=== PATIENT | female | born 1950 | race Caucasian/White ===

== ENCOUNTER → 2016-11-28 | Outpatient (CLI) | payer BC ==
--- NOTE | 2016-11-29 15:16 | MAMMOGRAPHY REPORT ---
BILATERAL DIGITAL SCREENING MAMMOGRAM TOMOSYNTHESIS WITH CAD: 11/28/2016 CLINICAL HISTORY: Routine screening examination. TECHNIQUE: Breast tomosynthesis in addition to standard 2D mammography was performed. Current study was also evaluated with a Computer Aided Detection (CAD) system. COMPARISON: Comparison is made to exams dated: 11/26/2015 mammogram - [facility], 10/29/2014 mammogram, 10/23/2013 mammogram, 10/22/2012 mammogram, and 10/20/2011 mammogram - [facility] [place]. BREAST COMPOSITION: The tissue of both breasts is heterogeneously dense, which may obscure small mas ses. FINDINGS: The parenchymal pattern is similar to prior mammograms. No developing mass, architectural distortion or cluster of suspicious microcalcifications is seen in either breast. IMPRESSION: ACR BI-RADS CATEGORY 2: BENIGN There is no mammographic evidence of malignancy. A 1 year screening mammogram is recommended. The pa tient will receive written notification of the results. Approximately 10% of breast cancers are not detected with mammography. A negative mammographic report should not delay biopsy if a clinically suggestive mass is present. Bernice Fernández M.D. ay/:11/28/2016 15:36:09 Integration Technician: Patricia REYES(Haleigh)(M), [facility] letter sent: Normal 1/2 BI-RADS Code: ACR BI-RADS Category 2: Benign
== END | disposition home or self-care (01) ==
LOC: C.MAMM 13:59
PROVIDERS: ATTEND Family Medicine
DX: Z12.31 Encounter for screening mammogram for malignant neoplasm of breast (principal)

== ENCOUNTER → 2016-12-05 | Outpatient (CLI) | payer BC ==
--- NOTE | 2016-12-05 11:07 | DIAGNOSTIC IMAGING REPORT ---
SOFT TISS HEAD/NECK-THYROID CLINICAL HISTORY: E04.9 [id number] multinodular thyroid goiter COMPARISON STUDY: 12/28/2015 FINDINGS: The right lobe of thyroid measures 49 x 21 x 16 mm. There are multiple right-sided thyroid nodules. The dominant nodule is a circumscribed, slightly hypoechoic, wider than tall, solid 20 x 9 x 13 mm. This remains unchanged the preceding study. The left lobe measures 39 x 18 x 15 mm. Multiple left lobe thyroid nodules are visualized. The dominant left lobe nodule is a circumscribed wider than tall slightly hypoechoic nodule measuring 17 x 12 x 9 mm. This nodule is also essentially unchanged in size when compared the preceding study. IMPRESSION: Multinodular thyroid goiter, very similar to the preceding study. Electronically signed by: Chandler Goel M.D. 12/05/2016 11:06 AM Dictated Date/Time: 12/05/2016 11:03 AM
== END | disposition home or self-care (01) ==
LOC: C.ULTR 10:17
PROVIDERS: ATTEND Internal Medicine Endocrinology, Diabetes & Metabolism
DX: E04.2 Nontoxic multinodular goiter (principal)

== ENCOUNTER 2017-01-15 01:49 | Emergency (ER) | payer BC, OTHER ==
[~2017-01-15] VITALS: Ht 162.6 cm; Wt 59.8 kg
[2017-01-15 01:52] VITALS: TEMP 36.4; Ht 162.6 cm; Wt 59.8 kg
[2017-01-15] MEDS ORDERED: SODIUM CHLORIDE 0.9% 500ML 500 ML IV STA (02:07)
--- NOTE | 2017-01-15 02:14 | EMERGENCY ROOM VISIT NOTE ---
History Report prepared by Kristi: Omid Davis Under the Supervision of: Dr. Leo Ibrahim M.D. First contact with patient: 01:57 Chief Complaint: SYNCOPE Stated Complaint: PASSED OUT,INITIAL SHORT TERM MEMORY LOSS History of Present Illness The patient is a 67 year old female who presents to the Emergency Room with complaints of a resolved syncopal episode that occurred at 0100. The patient is accompanied by her who states that he heard a thump in the other room, which caused him to check his bedroom. He reports that he found his after she fell, but denies that she was unconscious when he found her. The patient states that she remembers being dizzy and seeing "squiggly lines". She states that she does not remember falling and becoming unconscious, but knows she fell. Her states that the patient was confused following the fall and had short term memory loss. The patient states that she has been coming back to normal and feels fine now. She admits that she had a drink last night but denies any drug use. She reports that she has been taking hydrochlorothiazide 25 mg for her history of hypertension but reports she was dropped to 12.5 mg because she was becoming dehydrated. The patient states that her blood pressure has been going up recently, which has been causing her to take two a day. She states that her mother has a history of heart problems, but she denies a personal history of heart problems. The patient states that she had a stress test a couple of years ago, but denies any problems form the test. She denies a headache, diaphoresis, a pale appearance, abdominal pain, and legs swelling. Source of History: patient Onset: 0 Position: other (global) Quality: other (global) Timing: resolved Associated Symptoms: No headache, No diaphoresis, No abdominal pain Review of Systems See HPI for pertinent positives & negatives. A total of 10 systems reviewed and were otherwise negative. Past Medical & Surgical Medical Problems: (1) Hypertension Family History FHx: heart disease Social History Smoking Status: Never Smoker Smokeless Tobacco Use: No Alcohol Use: occasionally Drug Use: none Marital Status: Housing Status: lives with significant other Occupation Status: employed Current/Historical Medications Scheduled Ascorbic Acid (Vitamin C), 1,000 MG PO DAILY Ferrous Sulfate (Iron), 28 MG PO DAILY Hydrochlorothiazide (Hctz), 12.5 MG PO DIRECTED Magnesium Oxide (Mag-Ox), 400 MG PO DAILY Multivitamin (Multivitamin), 1 TAB PO DAILY Potassium Ext Rel (Klor-Con), 20 MEQ PO DAILY Allergies Coded Allergies: No Known Allergies (Unverified , 01/15/17) Physical Exam Vital Signs Date Time Temp Pulse Resp B/P (MAP) Pulse Ox O2 Delivery O2 Flow Rate FiO2 01/15/17 05:25 71 18 131/80 98 01/15/17 04:35 72 20 100 01/15/17 04:30 122/82 01/15/17 04:24 69 21 98 01/15/17 04:09 67 20 99 01/15/17 04:00 132/81 01/15/17 03:54 65 17 100 01/15/17 03:39 65 99 01/15/17 03:34 126/82 01/15/17 03:30 126/82 01/15/17 03:24 66 21 100 01/15/17 03:09 75 23 100 01/15/17 03:04 68 13 98 01/15/17 03:00 124/78 01/15/17 02:49 60 13 97 01/15/17 02:43 144/84 01/15/17 02:19 65 17 100 Room Air 01/15/17 02:09 147/95 01/15/17 02:08 164/99 01/15/17 02:07 66 153/91 74 164/99 75 147/95 01/15/17 02:07 153/91 01/15/17 01:52 36.4 65 20 160/92 100 Room Air Physical Exam GENERAL: Patient is well appearing and in no acute distress. HEENT: No acute trauma, normocephalic atraumatic, mucous membranes moist, no nasal congestion, no scleral icterus. NECK: No stridor, no adenopathy, no meningismus, trachea is midline. LUNGS: No dyspnea. Clear to auscultation and equal bilaterally. No wheeze, no rhonchi. HEART: Regular rate and rhythm. No murmurs, rubs, gallops appreciated. ABDOMEN: Soft, nontender, bowel sounds positive, no masses appreciated, no peritonitis. BACK: No midline tenderness, no CVA tenderness EXTREMITIES: Normal motion all extremities, no cyanosis, no edema. NEUROLOGIC: Alert and oriented, no acute motor or sensory deficits, no focal weakness, cranial nerves grossly intact. SKIN: No rash, no jaundice, no diaphoresis. Medical Decision & Procedures ER Provider Diagnostic Interpretation: Radiology results and stated below per my review and radiologist interpretation: CT HEAD: No acute intracranial abnormality identified. Prominent cerebral volume loss, especially along the frontal lobes. Radiologist: Yomi Grady M.D. Laboratory Results 01/15/17 02:26 Red Blood Count 4.08, Mean Corpuscular Volume 90.0, Mean Corpuscular Hemoglobin 30.9, Mean Corpuscular Hemoglobin Concent 34.3, Mean Platelet Volume 10.5, Neutrophils (%) (Auto) 62.0, Lymphocytes (%) (Auto) 28.9, Monocytes (%) (Auto) 6.7, Eosinophils (%) (Auto) 1.8, Basophils (%) (Auto) 0.4, Neutrophils # (Auto) 3.55, Lymphocytes # (Auto) 1.65, Monocytes # (Auto) 0.38, Eosinophils # (Auto) 0.10, Basophils # (Auto) 0.02 01/15/17 02:26 Test 01/15/17 02:26 01/15/17 04:39 White Blood Count 5.71 K/uL (4.8-10.8) Red Blood Count 4.08 M/uL (4.2-5.4) Hemoglobin 12.6 g/dL (12.0-16.0) Hematocrit 36.7 % (37-47) Mean Corpuscular Volume 90.0 fL (80-100) Mean Corpuscular Hemoglobin 30.9 pg (25-34) Mean Corpuscular Hemoglobin Concent 34.3 g/dl (32-36) Platelet Count 182 K/uL (130-400) Mean Platelet Volume 10.5 fL (7.4-10.4) Neutrophils (%) (Auto) 62.0 % Lymphocytes (%) (Auto) 28.9 % Monocytes (%) (Auto) 6.7 % Eosinophils (%) (Auto) 1.8 % Basophils (%) (Auto) 0.4 % Neutrophils # (Auto) 3.55 K/uL (1.4-6.5) Lymphocytes # (Auto) 1.65 K/uL (1.2-3.4) Monocytes # (Auto) 0.38 K/uL (0.11-0.59) Eosinophils # (Auto) 0.10 K/uL (0-0.5) Basophils # (Auto) 0.02 K/uL (0-0.2) RDW Standard Deviation 41.0 fL (36.4-46.3) RDW Coefficient of Variation 12.6 % (11.5-14.5) Immature Granulocyte % (Auto) 0.2 % Immature Granulocyte # (Auto) 0.01 K/uL (0.00-0.02) Anion Gap 4.0 mmol/L (3-11) Est Creatinine Clear Calc Drug Dose 54.5 ml/min Estimated GFR () 78.8 Estimated GFR (Non- 68.0 BUN/Creatinine Ratio 24.7 (10-20) Calcium Level 8.3 mg/dl (8.5-10.1) Troponin I < 0.015 ng/ml (0-0.045) Bedside Troponin I < 0.030 ng/ml (0-0.045) Laboratory results as reviewed by me. Medications Administered Medications (Trade) Dose Ordered Sig/Cecile Route Start Time Stop Time Status Last Admin Dose Admin Sodium Chloride 500 ml @ 999 mls/hr Q31M STAT IV 01/15/17 02:07 01/15/17 02:37 DC 01/15/17 02:19 999 MLS/HR Potassium Chloride (Klor-Con M10) 40 meq NOW STAT PO 01/15/17 03:02 01/15/17 03:07 DC 01/15/17 03:12 40 MEQ ECG Indication: syncope Rate (beats per minute): 66 Rhythm: normal sinus Findings: no acute ischemic change, no ectopy ED Course 0200: The patient was evaluated in room B04B. A complete history and physical exam was performed. 0207: Ordered Sodium Chloride 500 ml @ 999 mls/hr IV. 0302: Ordered Potassium Chloride 40 meq PO. 0315: I reevaluated the patient and she is feeling fine. 0430: Reevaluated the patient. Discussed results and discharge instructions: She verbalized understanding and agreement. The patient is ready for discharge. Medical Decision Differential: Vaso-vagal, Intracerebral Event, Neurologic, Infectious, Volume Deficiency, Hypoglycemia, Electrolyte Abnormality, Cardiac Source, Toxicologic, amongst other pathologies entertained. 67 yr old female arrives following brief syncopal event at home. Occurred after getting up middle night to go to bed after ETOH earlier in evening in setting of dehydration from excessive biking and use of HCTZ. Looks well without further symptoms, normal orthostatics, and no neuro deficits. CT head with some loss frontal lobes which she will discuss with PCP. EKG looks OK and trop neg x 2 thus I feel this was not ACS. No evidence arrhythmia on monitor. Moderate hypoK on labs noted. Given 40meq PO and will start daily supplement over next 2 weeks with planned PCP follow up for recheck and discussion of other BP meds, as well as further syncope work-up as warranted. She looks well, feels fine and wishes to go home. Reviewed at length symptoms requiring return and patient/ comfortable with plan Head Trauma GCS Score: 15 Medication Reconcilliation Current Medication List: was personally reviewed by me Blood Pressure Screening Patient's blood pressure: Elevated blood pressure Blood pressure disposition: Referred to PCP Impression Primary Impression: Syncope Additional Impressions: Hypokalemia Dehydration Scribe Attestation The scribe's documentation has been prepared under my direction and personally reviewed by me in its entirety. I confirm that the note above accurately reflects all work, treatment, procedures, and medical decision making performed by me. Departure Information Dispostion Home / Self-Care Prescriptions Potassium Ext Rel (Klor-Con) 20 Meq Tabcr 20 MEQ PO DAILY for 15 Days, #15 TAB Prov: Leo Ibrahim M.D. 01/15/17 Referrals Crys Ramsay M.D. (PCP) Patient Instructions Fainting (Syncope) - [facility], Hypokalemia T[place], My [facility] Additional Instructions Please discuss your syncope and low potassium with your primary care provider this week. Discuss further testing and monitoring. We are always here to help. Rest and keep well hydrated over next 2 days. Problem Qualifiers Primary Impression: Syncope Encounter type: initial encounter
[2017-01-15] MEDS ORDERED: HYDR25TA4 PO (02:23)
[2017-01-15] MEDS ORDERED: ASCO10003 PO (02:24)
[2017-01-15] MEDS ORDERED: FERR28TA2 PO (02:25)
[2017-01-15] MEDS ORDERED: MAGN400T6 PO (02:25)
[2017-01-15] MEDS ORDERED: MULT-506 PO (02:26)
[2017-01-15 02:37] LABS: BASO % 0.4 %; BASO ABS # 0.02 K/uL (0-0.2); COMPLETE YES; EOS % 1.8 %; HEMATOCRIT 36.7 % (37-47); IG% 0.2 %; LYMPH % 28.9 %; LYMPH ABS # 1.65 K/uL (1.2-3.4); MEAN CORPUSCULAR HEMOGLOBIN 30.9 pg (25-34); MEAN CORPUSCULAR HGB CONC 34.3 g/dl (32-36); MEAN PLATELET VOLUME 10.5 fL (7.4-10.4); MONO % 6.7 %; PLATELET COUNT 182 K/uL (130-400); RED BLOOD COUNT 4.08 M/uL (4.2-5.4); WHITE BLOOD COUNT 5.71 K/uL (4.8-10.8)
[2017-01-15 02:54] LABS: BLOOD UREA NITROGEN 22 mg/dl (7-18); BUN/CREATININE RATIO 24.7 (10-20); CALCIUM 8.3 mg/dl (8.5-10.1); CARBON DIOXIDE 30 mmol/L (21-32); CHLORIDE 103 mmol/L (98-107); CREATININE 0.89 mg/dl (0.60-1.20); GLUCOSE 92 mg/dl (70-99); POTASSIUM 2.9 mmol/L (3.5-5.1); SODIUM 137 mmol/L (136-145)
[2017-01-15] MEDS ORDERED: POTASSIUM CHLORIDE 10 MEQ TABCR PO STA (03:02)
[2017-01-15] MEDS ORDERED: POTA20TA16 PO (04:21)
[2017-01-15 05:25] VITALS: BP 131/80; PULSE 71; O2SAT 98
--- NOTE | 2017-01-15 06:03 | DIAGNOSTIC IMAGING REPORT ---
HEAD WITHOUT CONTRAST (CT) CLINICAL HISTORY: 67 years-old Female with syncope. Acute syncope with memory loss and head injury TECHNIQUE: Multiple axial CT images of the head were obtained without contrast. A dose lowering technique was utilized adhering to the principles of ALARA. CT DOSE: 614.27 mGy.cm COMPARISON: Brain MRI 09/21/2015. FINDINGS: No acute intracranial hemorrhage, midline shift, intracranial mass, hydrocephalus, territorial ischemia or abnormal extra-axial collection. Moderate bifrontal cerebral atrophy. The calvarium is intact. The paranasal sinuses, mastoid air cells, and middle ear cavities are clear. IMPRESSION: No acute intracranial abnormality. The above report was generated using voice recognition software. It may contain grammatical, syntax or spelling errors. Electronically signed by: Abhishek Starks M.D. 01/15/2017 6:01 AM Dictated Date/Time: 01/15/2017 5:58 AM
== END 2017-01-15 05:28 | disposition home or self-care (01) ==
LOC: C.EDB 01:50
DX: R55 Syncope and collapse (principal); E87.6 Hypokalemia; E86.0 Dehydration; I10 Essential (primary) hypertension; Z82.49 Family history of ischemic heart disease and other diseases of the circulatory system

== ENCOUNTER → 2017-04-28 | Outpatient (CLI) | payer OTHER ==
[~2017-04-28] MED LIST: ASCO10003 PO; FERR28TA2 PO; HYDR25TA4 PO; MAGN400T6 PO; MULT-506 PO
--- NOTE | 2017-04-28 14:44 | DIAGNOSTIC IMAGING REPORT ---
PELVIC COMPLETE NON OB CLINICAL HISTORY: BLOODY VAGINAL DISCHARGE DISCHARGE COMPARISON STUDY: None FINDINGS: The uterus measured 6.9 cm. Heterogeneous myometrial echogenicity suggesting developing fibroid involvement. Discrete fibroids are identified posterior aspect of the mid uterine body measuring 2 cm. A second anterior fibroid appears to be present measuring 2.2 cm.. The endometrial stripe measured 3 mm. The right ovary measured not well seen due to overlying bowel content.. The left ovary measured not well seen due to overlying bowel content.. There is no ultrasonographic evidence of ovarian torsion. It should be noted that ovarian torsion can be present with normal Doppler ultrasonographic findings. There was no evidence of pathologic free pelvic fluid. IMPRESSION: Fibroid-type uterus. Normal endometrial thickness at 3 mm. Nonvisualization of the ovaries presumably secondary to overlying bowel. The above report was generated using voice recognition software. It may contain grammatical, syntax or spelling errors. Electronically signed by: Luis Dawson M.D. 04/28/2017 2:42 PM Dictated Date/Time: 04/28/2017 2:40 PM
== END | disposition home or self-care (01) ==
LOC: C.ULTR 14:03
PROVIDERS: ATTEND Family Medicine
DX: N89.8 Other specified noninflammatory disorders of vagina (principal)

== ENCOUNTER → 2017-05-08 | Outpatient (CLI) | payer OTHER | END | disposition home or self-care (01) | LOC: C.PATHSPEC 13:27 | PROVIDERS: ATTEND Obstetrics & Gynecology | DX: N95.0 Postmenopausal bleeding (principal) ==

== ENCOUNTER → 2017-05-12 | Outpatient (CLI) | payer OTHER ==
--- NOTE | 2017-05-12 13:13 | DIAGNOSTIC IMAGING REPORT ---
(RENAL)RETROPERITON COMP CLINICAL HISTORY: 67 years-old Female presenting with N39.46 Urge and stress [id number]. TECHNIQUE: Real-time grayscale and limited color Doppler ultrasound imaging of the kidneys and bladder was performed. COMPARISON: None. FINDINGS: Right kidney: Normal echogenicity of renal parenchyma allowing for obscuration of the lower pole secondary to bowel gas. Right kidney measures 9 cm. Mild pelviectasis, which does not resolve on postvoid imaging. No convincing evidence of calculus or mass. Left kidney: Normal echogenicity of renal parenchyma. Left kidney measures 11 cm. Mild pelviectasis, which resolves on postvoid imaging. No convincing evidence of calculus or mass. Bladder: Normal. Bilateral ureteral jets present. Other: None. IMPRESSION: 1. Mild pelviectasis bilaterally, which on the right does not resolve on postvoid imaging. This could suggest a flaccid collecting system, chronic reflux, or, less likely, hydronephrosis. Otherwise normal renal ultrasound. Electronically signed by: Dandre Christian M.D. 05/12/2017 1:11 PM Dictated Date/Time: 05/12/2017 1:09 PM
== END | disposition home or self-care (01) ==
LOC: C.ULTR 12:32
PROVIDERS: ATTEND Obstetrics & Gynecology
DX: N39.46 Mixed incontinence (principal)

== ENCOUNTER → 2017-05-31 | Day surgery (SDC) | payer OTHER ==
[2017-05-23 13:12] VITALS: Ht 163.8 cm; Wt 59.1 kg
--- NOTE | 2017-05-28 12:51 | HISTORY & PHYSICAL EXAMINATION ---
DATE OF ADMISSION: 05/31/2017 CHIEF COMPLAINT: Postmenopausal bleeding. HISTORY OF PRESENT ILLNESS: The patient is a 67-year-old white female who reports episodes of spotting and bleeding for the past few months. The patient was menopausal at age 59 and went for many years without any bleeding. The patient's last Pap smear was October 2016 and was negative. She does have a history of urinary tract infections with bleeding, but she has had her urine checked and this was negative. In addition, renal and bladder ultrasound was done and this was negative for any potential source of bleeding. She denies any rectal bleeding. She did have a pelvic ultrasound performed and this showed 2 small fibroids, the largest being 2.2 cm. Endometrial lining was noted to be 3 mm. Ovaries were not well seen. An endometrial biopsy was done which a small amount of inactive endometrium. FAMILY HISTORY: No family history of uterine cancer, although her mother and maternal aunt have had breast cancer. She had a brother with lung cancer and another brother with prostate cancer. She also had a sister who had stomach cancer. ALLERGIES: None known. MEDICATIONS: The patient takes supplements. She takes calcium 600 mg daily, vitamin D3 5000 international units daily. She also takes a multivitamin daily, vitamin C 500 mg daily and iron 325 mg twice daily. ILLNESSES: The patient reports goiter, also hypertension. In addition, gastroesophageal reflux and anemia. Also, reports an abnormal MRI of the brain. 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 PAST SURGICAL HISTORY: She has had tonsillectomy. FAMILY HISTORY: As above in the history of present illness, also history of a sister having brain tumor. Her mother has had a history of blood clots. Her mother also has had heart disease. She has a brother with diabetes and other family members have had hypertension. As well, there is a history of various types of cancer in the family. SOCIAL HISTORY: The patient is . She denies smoking cigarettes or drinking alcohol. PHYSICAL EXAMINATION: VITAL SIGNS: Height 5 foot 4 inches, weight 134.6 pounds, blood pressure 122/86. HEENT: Grossly within normal limits. NECK: Supple without masses. CHEST: Her lungs are clear without wheezing. HEART: Regular rate and rhythm. No murmurs, gallops or rubs. ABDOMEN: Soft and nontender with no masses. PELVIC: External genitalia normal. Vagina pink and smooth. Cervix pink and closed with no lesions visible. Uterus within normal limits size. Adnexa nontender and no masses are palpable. EXTREMITIES: No cyanosis, clubbing or edema. IMPRESSION: A 67-year-old white female with post-menopausal bleeding. PLAN: The patient is for hysteroscopy, dilation of the cervix and curettage with possible removal of polyp/lesion. The patient is aware of the risks of bleeding, infection, perforation of the uterus and possible need for further treatment. MTDD
[~2017-05-31] VITALS: Ht 163.8 cm; Wt 59.1 kg
[~2017-05-31] MED LIST changes: -ASCO10003 PO; +ATROPINE SULFATE 0.1 MG/ML 5ML SYR IV PRN; +CALC600T9 PO; +DEXAMETHASONE SOD INJ 4 MG/ML VIAL ONE; +EpHEDrine SULFATE INJ 50 MG/ML AMP IV PRN; +FENTANYL CITRATE INJ 50 MCG/1 ML 2 ML VIAL IV PRN; +FENTANYL CITRATE INJ 50 MCG/1 ML 2 ML VIAL ONE; -FERR28TA2 PO; -HYDR25TA4 PO; +IBUPROFEN 200 MG TAB ONE; +IBUPROFEN 600 MG TAB PO PRN; +IRON PO; +LACTATED RINGER'S 1000ML 1,000 ML IV SCH; +LIDOCAINE HCL 2% 2 ML VIAL (20MG/ML) ONE; +MAGN250T8 PO; -MAGN400T6 PO; +MIDAZOLAM HCL 1 MG/ML 2ML VIAL ONE; +ONDANSETRON INJ 2 MG/ML 2 ML VIAL IV PRN; +ONDANSETRON INJ 2 MG/ML 2 ML VIAL ONE; +PROPOFOL IV EMULSION 10 MG/ML 20 ML VIAL IV ONE; +SODIUM CHLORIDE 0.9% 1000ML 1,000 ML IV SCH; +VITAMIN C PO
--- NOTE | 2017-05-31 13:12 | History & Physical Bridge - SC ---
H&P Re-Evaluation Bridge Note: I have examined the patient, reviewed the History & Physical and in the interval since the performance of the History & Physical I have noted the following changes of clinical significance: No changes noted
--- NOTE | 2017-05-31 14:35 | [facility] Post Operative Brief Note ---
Immediate Operative Summary Operative Date May 31, 2017. Pre-Operative Diagnosis Post Menopausal Bleeding Post-Operative Diagnosis Same Procedure(s) Performed D&C, Hysteroscopy, Polypectomy Surgeon Dr. Hutchins Water Resource Engineer Surgeon(s) None Estimated Blood Loss 30 cc Findings Consistent with Post-Op Diagnosis Specimens A.) Endocervical Curettings B.) Endometrial Curettings & Polyp Drains None Anesthesia Type General Complication(s) none Disposition Accompanied Pt To Recovery: yes Disposition: Recovery Room / PACU
--- NOTE | 2017-05-31 14:43 | Discharge Instructions-[facility]urgCtr ---
Discharge Instructions Date of Service May 31, 2017. Visit Reason for Visit: Post Menopausal Bleeding Discharge Discharge Diagnosis / Problem: S/P Hysteroscopy, D&C and polypectomy Discharge Goals Goal(s): Diagnostic testing, Therapeutic intervention Activity Recommendations Activity Limitations: per Instructions/Follow-up section Anesthesia . Post Anesthesia Instructions: If you have had General Anesthesia or IV Sedation: * Do not drive today. * Resume driving when surgeon permits. * Do not make important decisions or sign legal documents today. * Call surgeon for: 1. Temperature elevations greater than 101 degrees F. 2. Uncontrollable pain. 3. Excessive bleeding. 4. Persistent nausea and vomiting. 5. Medication intolerance (nausea, vomiting or rash). * For nausea and vomiting use only clear liquids such as: tea, soda, bouillon until nausea subsides, then gradually increase diet as tolerated. * If you have any concerns or questions, call your surgeon's office. If physician is unavailable and it is an emergency, call 911 or go to the nearest emergency room. . Instructions / Follow-Up Instructions / Follow-Up ACTIVITY RECOMMENDATIONS: * Avoid tampons, douching, hot tubs, pools, and intercourse until bleeding has stopped. * May shower as usual. * No strenuous activity for 24-48 hours. After 24-48 hours, you may do anything you feel like doing (driving and sports are okay). SPECIAL CARE INSTRUCTIONS: Special Diet: * Mild nausea may occur in the immediate post-operative period. * Take clear liquids such as tea, cola or bouillon until all nausea has subsided; you may then resume your normal diet. Special Care: * Light bleeding and vaginal spotting can last from a few days to 3-4 weeks. Call your doctor if bleeding becomes heavier than the heaviest part of your period. * Check your temperature twice a day for one week. If it goes above 100.4 degrees Fahrenheit (38.0 Celsius), notify your doctor. If you develop a foul vaginal discharge or heavy bleeding call the office. [phone] * Call your doctor's office for an appointment for 2-4 weeks after your surgery. [phone] FOLLOW-UP VISIT: Call your doctor's office for an appointment for 2-4 weeks after your surgery. Diet Recommendations Home Diet: resume previous diet Procedures Procedures Performed: D&C, Hysteroscopy, Polypectomy Pending Studies Studies pending at discharge: yes List of pending studies: We will call you with the pathology report from the polyp removed. We will get the report back within one week. Medical Emergencies . Who to Call and When: Medical Emergencies: If at any time you feel your situation is an emergency, please call 911 immediately. . Non-Emergent Contact Non-Emergency issues call your: Capacitor Pack Press Operator Call Non-Emergent contact if: temperature is above 100.5, your pain is worsening . . "Provider Documentation" section prepared by Sonia Hutchins. .
--- NOTE | 2017-05-31 15:28 | Anesthesia Progress Nt - [facility] ---
Anesthesia Post Op Note Date & Time May 31, 2017 at 15:27 Vital Signs Pain Intensity: 3 Vital Signs Past 12 Hours Date Time Temp Pulse Resp B/P (MAP) Pulse Ox O2 Delivery O2 Flow Rate FiO2 05/31/17 15:10 36.4 54 16 159/99 (119) 99 Room Air 05/31/17 15:06 36.1 100 Room Air 05/31/17 15:06 146/83 05/31/17 15:03 55 12 05/31/17 15:03 58 12 05/31/17 15:01 134/86 05/31/17 14:58 55 10 100 05/31/17 14:58 56 10 05/31/17 14:56 153/76 05/31/17 14:53 60 11 05/31/17 14:53 62 11 99 05/31/17 14:52 61 20 05/31/17 14:52 61 20 127/70 98 05/31/17 14:47 52 15 100 05/31/17 14:47 52 15 05/31/17 14:46 147/83 05/31/17 14:42 56 6 05/31/17 14:42 55 6 100 05/31/17 14:41 150/83 05/31/17 14:40 54 11 100 05/31/17 14:40 55 11 05/31/17 14:36 170/106 05/31/17 14:35 36.0 57 16 170/106 100 Mask 6 05/31/17 12:42 36.2 58 16 140/90 (107) 100 Room Air Notes Mental Status: alert / awake / arousable, participated in evaluation Pt Amnestic to Procedure: Yes Nausea / Vomiting: adequately controlled Pain: adequately controlled Airway Patency, RR, SpO2: stable & adequate BP & HR: stable & adequate Hydration State: stable & adequate Anesthetic Complications: no major complications apparent
[2017-05-31 15:30] VITALS: TEMP 36.3
[2017-05-31 15:43] VITALS: BP 158/78; PULSE 49; O2SAT 100
--- NOTE | 2017-05-31 16:52 | OPERATIVE REPORT ---
DATE OF OPERATION: 05/31/2017 PREOPERATIVE DIAGNOSIS: Postmenopausal bleeding. POSTOPERATIVE DIAGNOSIS: Same. PROCEDURE: Hysteroscopy, D and C and polypectomy. SURGEON: Sonia Hutchins MD ANESTHESIA: General. INTERNET MARKETER: Dr. Whyte. PROCEDURE: The patient was taken to the operating room where general anesthesia was administered. After an adequate level was obtained, she was placed in dorsal lithotomy position. Vulva, vagina, and cervix were prepped with Betadine solution. The patient was draped. Weighted speculum was placed in the posterior fornix of the vagina. Bladder was drained with a straight catheter. Anterior lip of the cervix was grasped with an Allis clamp. Scant endocervical curettings were obtained. The cervix was dilated to #23. Hysteroscope was introduced into the endometrial cavity. The uterine cavity was remarkable in that there was a right hand portion of the cavity, which appeared to be a long narrow horn. To the patient's left was a much shallower horn within the opening of that horn there was a smooth sessile polypoid mass. The opening of the left fallopian tube could be seen and there was a small clot in that area. Hysteroscope was removed and the MyoSure instrument introduced. The polypoid mass was removed with the MyoSure instrument under direct visualization. There were no complications. The clot of tissue within the left uterine horn was removed at the same time. Overall, the endometrial cavity had a benign appearance. At this point, the procedure was ended. Estimated blood loss 30 mL There was a little bit of tissue floating in the fluid from hysteroscopy and this was sent with endocervical curettings. The patient tolerated the procedure well and was taken to the recovery room in good condition. I attest to the content of the Intraoperative Record and any orders documented therein. Any exceptions are noted below. MTDD
== END | disposition home or self-care (01) ==
LOC: X.SURG 12:31
PROVIDERS: ATTEND Obstetrics & Gynecology
DX: N95.0 Postmenopausal bleeding (principal); I10 Essential (primary) hypertension; K22.70 Barrett's esophagus without dysplasia; K21.9 Gastro-esophageal reflux disease without esophagitis; E04.9 Nontoxic goiter, unspecified; Z80.3 Family history of malignant neoplasm of breast; Z82.49 Family history of ischemic heart disease and other diseases of the circulatory system; Z80.0 Family history of malignant neoplasm of digestive organs; Z83.3 Family history of diabetes mellitus; Z80.42 Family history of malignant neoplasm of prostate; Z80.1 Family history of malignant neoplasm of trachea, bronchus and lung